=== PATIENT | male | born 1960 | race Caucasian/White ===

== ENCOUNTER 2024-04-27 07:00 | Day surgery (SDC) | payer OTHER, MEDICARE ==
[2024-04-24 10:59] LABS: Absolute Basophils 0.1 K/uL (0-0.5); Absolute Eosinophils 0.5 K/uL (0-0.5); Absolute Lymphocytes (CBC) 1.7 K/uL (0.7-4.9); Absolute Monocytes 0.9 K/uL (0.1-1.3); Absolute Neutrophil 3.5 K/uL (1.8-8.0); Basophils % 0.8 % (0-1.3); Eosinophils % 6.9 % (0-4.4); Hematocrit 42.6 % (39.6-49.0); Hemoglobin 14.3 g/dL (13.6-17.9); Lymphocytes % 26.1 % (15.3-44.8); MCH 30.3 pg (27.0-35.0); MCHC 33.6 g/dL (32.0-36.0); MCV 90.2 fL (80-100); MPV 9.7 fL (7.6-11.3); Monocytes % 13.5 % (3.3-12.3); Neutrophils % 52.7 % (41.7-73.7); Nucleated Red Blood Cells % 0.1 % (0-0); Platelets 217 thou/uL (152-406); RBC Red Blood Cell Count 4.72 M/uL (4.33-5.43); Red Cell Distribution Width 14.3 % (12.1-15.2)
[2024-04-24 11:14] LABS: Anion Gap 7.1 mEq/L (5.0-15.0); Potassium 4.1 mEq/L (3.5-5.1)
--- NOTE | 2024-04-24 11:24 | RAD REPORT ---
EXAMINATION: TWO VIEW CHEST XR CLINICAL INDICATION: pre-op pending heart catheterizatino TECHNIQUE: 2 views of the chest was performed. COMPARISON: No prior exam. FINDINGS: The lungs are well inflated and clear. The heart is moderately enlarged. No displaced fractures evide nt. IMPRESSION: No acute or significant abnormalities.
[2024-04-24 11:49] LABS: PTT, Activated Partial Thromb 41.2 SECONDS (24.3-36.9); Protime INR 1.05
[2024-04-27] MEDS ORDERED: NA CHLORIDE 0.9% 500 ML ONE (07:04)
[2024-04-27] MEDS ORDERED: NITROGLYCERIN/D5W 50 MG/250 ML BTL IV ONE (07:21)
[2024-04-27] MEDS ORDERED: LIDOCAINE 1% 20 ML MDV ONE (07:21)
[2024-04-27] MEDS ORDERED: HEPA 1000U/500MLS 2,000 UNIT/1,000 ML BAG IV ONE (07:21)
[2024-04-27] MEDS ORDERED: HEPARIN 10,000 UNIT/10 ML VIAL IV ONE (07:21)
[2024-04-27] MEDS ORDERED: MIDAZOLAM HCL 2 MG/2 ML INJ ONE (07:22)
[2024-04-27] MEDS ORDERED: CLOPIDOGREL 75 MG TABLET ONE (07:22)
[2024-04-27] MEDS ORDERED: ATROPINE SULF 1 MG/10 ML SYR IV ONE (07:22)
[2024-04-27] MEDS ORDERED: FENTANYL CITR 100 MCG/2 ML ONE (07:23)
[2024-04-27] MEDS ORDERED: TICAGRELOR 90 MG TABLET PO ONE (07:23)
[2024-04-27] MEDS ORDERED: HEPARIN 5000 UNIT/ML 1 ML VIAL ONE (07:23)
[2024-04-27] MEDS ORDERED: NALOXONE 0.4 MG/ML VIAL ONE (07:29)
[2024-04-27] MEDS ORDERED: FLUMAZENIL 0.1 MG/ML (5 mL VIAL) IV ONE (07:29)
[2024-04-27 10:41] VITALS: BP 133/69; O2SAT 95
--- NOTE | 2024-04-27 22:53 | OP ---
Date of Procedure: 04/27/2024 Surgeon: Scott Cherry Procedure Performed: 1.Left heart catheterization. 2.Selective coronary angiogram. Indication For Procedure: Abnormal stress test. Chest pain. Complications: None. Estimated Blood Loss: Less than 50 cc. Access: Right radial, closed by TR band. Sedation Time: 20 minutes with 1 of Versed and 25 of fentanyl. Description Of Procedure: After risks, benefits, and alternatives were explained to the patient, pat ient agreed to proceed with procedure and signed informed consent. The patient was brought back to [facility], prepped and draped in sterile fashion. Time-out was performed. Sedation was administer ed. Next, the right radial access was obtained using ultrasound-guided micropuncture technique. Tig er 4 catheter was advanced over a J-wire to the cavity. LVEDP was obtained pullback did n ot show any gradient. Same catheter was used for selective angiogram of the catheter was removed over a J-wire. Sheath was removed. TR band was applied. Hemostasis was achieved. The wilber ent was moved back to recovery in stable condition. Findings: 1.Left main normal. 2.LAD . 3.LVEDP 2 mmHg. Assessment/plan: Normal coronaries. Normal filling pressure. Plan will be to continue . ALCANTARA/MODL Voice ID: [id number] Report ID: [id number]
--- NOTE | 2024-04-30 13:14 | EKG ---
Test Date: 2024-04-24 Test Time: 11:44:37 Nylon Operator: NIKUNJ MEASUREMENT RESULTS: Intervals: Rate: 54 VA: 352 QRSD: 86 QT: 414 QTc: 392 [place]: P: VA: 352 QRS: -9 T: 23 INTERPRETIVE STATEMENTS: Sinus bradycardia with 1st degree AV block with premature atrial complexes Otherwise normal ECG No previous ECG available for comparison Electronically Signed On 04-30-24 13:04:16 TACK COVERER by Scott Cherry
== END 2024-04-27 10:20 | disposition home or self-care (01) ==
LOC: CCL 07:00
PROVIDERS: ATTEND Internal Medicine Interventional Cardiology
DX: R94.39 Abnormal result of other cardiovascular function study (principal); R07.9 Chest pain, unspecified; R06.02 Shortness of breath; I10 Essential (primary) hypertension; I71.21 Aneurysm of the ascending aorta, without rupture; Z87.891 Personal history of nicotine dependence; Z79.899 Other long term (current) drug therapy; Z91.013 Allergy to seafood; Z82.49 Family history of ischemic heart disease and other diseases of the circulatory system
CPT/HCPCS: 36415; 71046; 76937; 80048; 85025; 85610; 85730; 93005; 93458; 99152; C1893; J0461; J1644; J2003; J2250; J2310; J3010; J7040; Q9966